=== PATIENT | male | born 2000 | race Caucasian/White ===

== ENCOUNTER 2021-06-24 18:22 | Emergency (ER) | payer OTHER ==
[2021-06-24 19:29] LABS: CORONAVIRUS 2019 SARS-COV-2 NEGATIVE (NEGATIVE); INFLUENZA A NAA NEGATIVE (NEGATIVE)
[2021-06-24] MEDS ORDERED: NAPROXEN500 MG PO (20:39)
== END 2021-06-24 20:45 | disposition home or self-care (01) ==
LOC: FER 18:22
PROVIDERS: Emergency Medicine
DX: M94.0 Chondrocostal junction syndrome [Tietze] (principal); R07.89 Other chest pain; F17.290 Nicotine dependence, other tobacco product, uncomplicated; Z20.822 Contact with and (suspected) exposure to COVID-19
CPT/HCPCS: 71045; 96372; J1100; J1885; U0002

== ENCOUNTER 2021-11-27 00:10 | Emergency (ER) | payer OTHER ==
[~2021-11-27 00:10] MED LIST: NAPROXEN500 MG PO
[2021-11-27 01:12] LABS: CORONAVIRUS 2019 SARS-COV-2 NEGATIVE (NEGATIVE); INFLUENZA A NAA NEGATIVE (NEGATIVE)
== END 2021-11-27 00:55 | disposition home or self-care (01) ==
LOC: FER 00:10
PROVIDERS: Emergency Medicine
DX: J06.9 Acute upper respiratory infection, unspecified (principal); R11.2 Nausea with vomiting, unspecified; F17.200 Nicotine dependence, unspecified, uncomplicated; Z20.822 Contact with and (suspected) exposure to COVID-19; Z28.310 Unvaccinated for COVID-19
CPT/HCPCS: J1885; U0002